=== PATIENT | male | born 1965 | race Caucasian/White ===

== ENCOUNTER 2019-04-02 14:52 | Outpatient (CLI) | payer OTHER, SELFPAY ==
--- NOTE | 2019-04-02 15:00 | USCV_ITS ---
Allen Francois Age: 54 Gender: M : 1965 Exam Date: 04/02/2019 15:02 Ordering Phys: Livia Vergara APRN FIELD APPLICATION ENGINEER Technologist: Natacha Rich Exam Location: [facility] [place] Indication: PRE OP AI BP: / HR: 56 Rhythm: Sinus Technical Quality: Adequate MEASUREMENTS (Male / Female) Normal Values 2D ECHO LV Diastolic Diameter PLAX 4.7 cm 4.2 - 5.9 / 3.9 - 5.3 cm LV Systolic Diameter PLAX 3.0 cm LV Chamber Size 3.0 cm IVS Diastolic Thickness 1.4 cm 0.6 - 1.0 / 0.6 - 0.9 cm IVS Systolic Thickness 1.9 cm LVPW Diastolic Thickness 1.7 cm 0.6 - 1.0 / 0.6 - 0.9 cm LVPW Systolic Thickness 1.8 cm RV Chamber Size 2.8 cm LVOT Diameter 2.1 cm LV Ejection Fraction 2D Teich 63.9 % LV Ejection Fraction MOD 2C 68.4 % LV Ejection Fraction 2C AL 67.1 % LA Diameter 4.4 cm LA Width 2.6 cm LA Height 3.9 cm RA Width 3.2 cm RA Height 5.3 cm M-MODE LV Diastolic Diameter MM 5.6 cm 4.2 - 5.9 / 3.9 - 5.3 cm LV Systolic Diameter MM 3.5 cm LV Ejection Fraction MM Teich 65.9 % IVS Diastolic Thickness MM 0.9 cm 0.6 - 1.0 / 0.6 - 0.9 cm IVS Systolic Thickness MM 1.7 cm LVPW Diastolic Thickness MM 1.4 cm 0.6 - 1.0 / 0.6 - 0.9 cm LVPW Systolic Thickness MM 1.9 cm RV Diastolic Diameter MM 1.5 cm Aortic Annulus Diameter 3.2 cm LA Ao Ratio MM 1.2 MV E Point Septal Separation 0.7 cm DOPPLER AV Peak Velocity 395.0 cm/s LVOT Peak Velocity 94.0 cm/s AV Area Cont Eq vti 0.9 cm squared AV Area Cont Eq pk 0.8 cm squared MV Area PHT 3.7 cm squared Mitral E to A Ratio 1.1 MV E' Velocity 6.0 cm/s Mitral E to MV E' Ratio 12.9 Mitral E to LV E' Lateral Ratio 12.9 Mitral E to LV E' Septal Ratio 12.9 TR Peak Velocity 226.1 cm/s TR Peak Gradient 20.4 mmHg TR Mean Velocity 195.0 cm/s TR Mean Gradient 15.1 mmHg TR Velocity Time Integral 60.1 cm TV Peak E Velocity 67.0 cm/s Right Atrial Pressure 3.0 mmHg Pulmonary Artery Systolic Pressu 23.4 mmHg PV Peak Velocity 97.0 cm/s RV Acceleration Time 0.2 s RV Ejection Time 0.4 s RV AcT/ET 0.5 FINDINGS Left Ventricle Normal left ventricular size and systolic function, EF 69 %. Moderate left ventricular hypertrophy. No regional wall motion abnormalities. Some features of grade 1 left ventricular diastolic dysfunction Right Ventricle The right ventricle is normal in size and function. Right Atrium The right atrium is normal in size. Left Atrium The left atrium is normal in size. Mitral Valve Trace mitral valve regurgitation. Thickened mitral valve. Aortic Valve Thickened and stenotic aortic valve. Mild aortic valve regurgitation. Possibly severe aortic valve stenosis with a valve area of 0.89 cm squared. T and a mean gradient of 30 mmHg he peak velocity of 3.95 m/s with a peak gradient of 63 and a mean gradient of 30 mmHg(low gradient aortic valve stenosis) Tricuspid Valve No gross abnormalities noted Pulmonic Valve Structurally normal pulmonic valve without significant stenosis. There is no pulmonic regurgitation. Pericardium Normal pericardium without effusion. Aorta Dilated ascending aorta measuring 4.3 cm in diameter just above the level of the isthmus. CONCLUSIONS Normal left ventricular size and systolic function, EF 69 %. Moderate left ventricular hypertrophy. No regional wall motion abnormalities. Some features of grade 1 left ventricular diastolic dysfunction. Possibly severe low gradient aortic valve stenosis with a valve area 0.89 cm squared (peak velocity of 3.95 m/s, peak gradient of 63 and a mean gradient of 30 mmHg) Mild aortic valve regurgitation. Dilated ascending aorta measuring 4.3 cm in diameter just above the level of the isthmus. Minimally thickened mitral valve with a trace of mitral regurgitation There is no pericardial effusion. There are no intracardiac masses. No previous study is available for comparison. Dr Amanda Morris MD FAC (Electronically Signed) Final Date: 03 April 2019 16:02 S
== END 2019-04-02 14:53 | disposition home or self-care (01) ==
LOC: RAD 14:55
PROVIDERS: Family Provider Nurse Practitioner Family; PCP Nurse Practitioner Family; Visit Provider Nurse Practitioner Family
DX: I08.0 Rheumatic disorders of both mitral and aortic valves (principal)
CPT/HCPCS: 93306

== ENCOUNTER → 2019-05-05 11:05 | Outpatient (BNVA) | payer OTHER, SELFPAY | PROVIDERS: Family Provider Nurse Practitioner Family; PCP Nurse Practitioner Family; Visit Provider Nurse Practitioner | DX: G89.29 Other chronic pain (principal); M79.604 Pain in right leg; M79.605 Pain in left leg; M54.16 Radiculopathy, lumbar region; R29.898 Other symptoms and signs involving the musculoskeletal system; G25.81 Restless legs syndrome; Z79.891 Long term (current) use of opiate analgesic | CPT/HCPCS: 99213 ==

== ENCOUNTER → 2020-02-25 10:16 | Outpatient (BNVA) | payer OTHER, SELFPAY | PROVIDERS: Family Provider Nurse Practitioner Family; PCP Nurse Practitioner Family; Visit Provider Nurse Practitioner Family | DX: J22 Unspecified acute lower respiratory infection (principal); R06.02 Shortness of breath; I10 Essential (primary) hypertension; Z79.899 Other long term (current) drug therapy; E55.9 Vitamin D deficiency, unspecified; Z20.828 Contact with and (suspected) exposure to other viral communicable diseases; E78.2 Mixed hyperlipidemia; I70.90 Unspecified atherosclerosis | CPT/HCPCS: 36415; 71046; 80053; 80061; 81003; 82306; 83036; 83880; 84443; 85025; 87635 ==

== ENCOUNTER 2020-04-28 19:28 | Emergency (ER) | payer OTHER, SELFPAY ==
[2020-04-28 19:31] VITALS: BP 164/111; PULSE 74; RESP 18; TEMP 36.5; O2SAT 98; BMI 31.8
--- NOTE | 2020-04-28 19:36 | XRR_ITS ---
PROCEDURE INFORMATION: Exam: XR Chest, 2 Views Exam date and time: 04/28/2020 7:51 PM Age: 55 years old Clinical indication: Cough; Additional info: Cough, rib pain TECHNIQUE: Imaging protocol: XR of the chest Views: 2 views. COMPARISON: CR XR chest 2V* [id number] 02/25/2020 10:52 AM FINDINGS: Lungs: Unremarkable. No consolidation. Pleural spaces: Unremarkable. No pleural effusion. No pneumothorax. Heart/Mediastinum: Unremarkable. No cardiomegaly. Bones/joints: Mild levoscoliosis. XR/XR chest 2V* [id number] IMPRESSION: No acute findings.
--- NOTE | 2020-04-28 19:46 | ED_ITS ---
HPI - General Adult General: Chief complaint: General Medical Stated complaint: rib pain, hurts to cough Time Seen by Provider: 04/28/20 19:35 Source: patient Mode of arrival: ambulatory Limitations: no limitations History of Present Illness: HPI narrative: Pleasant 55-year-old male patient with multiple sclerosis presents to the emergency department with 6-week history of cough, nonproductive. Has been to his primary care provider and received antibiotics with steroids approximately 4 weeks ago which was not effective. He has continued with the cough, Covid testing was negative at that time, he reports the cough is worse with exertion or movement. Concern today is development of right lower rib pain after a hard cough. He nearly dropped him to the floor pain was so bad. He denies fever chills, nausea vomiting. He does have history of valve problem, states recent cardiology visit revealed valve problem but not surgically needed in repair at this time. He denies chest pain. States shortness of breath with cough present. Denies edema to the extremities or orthopnea. Onset (ago): week(s) (6) Location: chest Severity: moderate Quality: sharp Pain Consistency: intermittent Relieving factors: rest Exacerbating factors: movement and other (cough) Associated symptoms: Reports cough and dyspnea (with cough); Deny chest pain, confusion, diaphoresis, headache(s), nausea, rash, palpitations or vomiting Review of Systems General: Reports: 10 or more systems reviewed and unremarkable except in HPI and below Const: Denies: fever(s), chills or diaphoresis Eyes: Denies: blurry vision or eye redness ENMT: Denies: throat pain, dental pain or disequilibrium Card: Denies: chest pain, palpitations or irregular heart rhythm Resp: Reports: dyspnea (with cough) and non-productive cough GI: Denies: abdominal pain, nausea, vomiting, dysphagia or GI cramping : Denies: dysuria Musc: Denies: neck pain, back pain, joint pain or joint stiffness Skin/Breast: Denies: rash or pruritus Neuro: Denies: headache(s), numbness in extremities, weakness in extremities, difficulty walking, confusion or behavioral changes Psych: Denies: anxiety, depression, sleeping more, hopelessness, irritability or difficulty concentrating Kody/Lymph: Denies: easy bruising PFS ED PFSH: Medical History Abnormal Q waves on electrocardiogram Aortic root dilation The aortic root was measured to be 4.3 cm in diameter, just above the level of the stenosis. Chest pain Chronic radicular pain of lower back Encounter for long-term opiate analgesic use Hypertension Patient was seen in the [facility] in January 2019 for HTN and given Amlodipine 10mg RX to take daily and to followup at [facility]. Patient did not followup at the clinic and did not continue medications following ER dischar ge. Lower respiratory infection Lower respiratory infection Medication management Mixed hyperlipidemia Multiple sclerosis Opioid contract exists Restless leg syndrome Shortness of breath Trigeminal nerve disease Vitamin D deficiency Surgical History Hx of appendectomy Hx of prior ablation treatment due to trigeminal neuralgia- Severo Carcamo Neurologist Family History Brother Cancer Multiple sclerosis Social History Smoking and tobacco status: never smoked Second hand smoke exposure: No Smoking risk assessment/counseling performed?: No Alcohol intake: never Desire information about alcohol rehabilitation?: No Counseling given: No Desire information about substance/drug rehabilitation?: No Counseling given: No Physical Exam Const: COMMON NORMALS: no acute distress, patient oriented x3, healthy appearing and alert GENERAL APPEARANCE: cooperative, comfortable and well h ydrated HENMT: COMMON NORMALS: normocephalic, Normal external nose present and moist oral mucous membranes HEAD & SCALP: normocephalic NOSE: Normal external nose present Eye: COMMON NORMALS: Equal, round and reactive pupils present and EOMs intact bilaterally GENERAL EYE: appearance normal, both eyes and all related structures PUPIL: Yes Equal, round and reactive pupils present Neck/C-Spine: COMMON NORMALS: full ROM and no lymphadenopathy GENERAL: Yes normal visual inspection and Yes trachea midline CERVICAL SPINE: Yes cervical ROM normal Lymph: LYMPHATIC: no lymphadenopathy noted Chest: COMMONS NORMALS: normal inspection of the chest CHEST: Yes Symmetrical chest wall rise, Yes localized rib tenderness with anteroposterior compression (rt lateral) Location: 9th rib, 10th rib, 11th rib and 12th rib and Yes tenderness rib (rt posterior, lateral lower ribs) Resp: COMMON NORMALS: normal respiratory effort, No use of accessory muscles and clear to auscultation bilaterally EFFORT & INSPECTION: Yes able to speak in complete sentences AUSCULTATION: clear to auscultation bilaterally Cardio: COMMON NORMALS: regular rate, regular rhythm, S1 normal heart sound present, S2 normal heart sound present and Peripheral pulses 2+ throughout RATE: regular rate RHYTHM: regular rhythm HEART SOUNDS: S1 normal heart sound present and S2 normal heart sound present PERIPHERAL PULSES: Peripheral pulses 2+ throughout GI: COMMON NORMALS: Normal to inspection, nondistended, normoactive bowel sounds present, Soft to palpation and non-tender INSPECTION: Yes normal to inspection, No abdominal wall ecchymosis, Yes central obesity, No visible herniation and Yes other (negative Sanz's) PALPATION: Yes Soft to palpation : COMMON NORMALS: Yes no CVA tenderness BLADDER/KIDNEY EXAM: Yes no CVA tenderness Back/Pelvis: COMMON NORMALS: no CVA tenderness and thoracic and lumbar spine normal to inspection Extremity: COMMON NORMALS: normal to inspection and capillary refill normal Neuro: COMMON NORMALS: patient oriented x3 and no focal motor deficits SENSORIUM/ORIENTATION: Yes alert Psych: COMMON NORMALS: mental status grossly normal, Normal thought process present and cooperative ACTIVITY/MOTOR BEHAVIOR: Yes appropriate eye contact THOUGHT PROCESS: Normal thought process present Skin: COMMON NORMALS: no rashes or lesions noted and turgor normal GENERAL SKIN EXAM: no rashes or lesions noted and turgor normal Course Vital Signs: Vital signs: Vital Signs Temperature 97.7 F 04/28/20 19:31 Pulse Rate 71 04/28/20 21:47 Respiratory Rate 17 04/28/20 21:47 Blood Pressure 159/99 04/28/20 21:47 Pulse Oximetry 99 04/28/20 21:47 MDM - General Adult MDM Narrative: Medical decision making narrative: 55-year-old male patient presents to the emergency department with 6-week history of nonproductive cough. Previously prescribed Levaquin with shot of Rocephin approximately 6 weeks ago. Covid testing at that time was negative. Chest x-ray completed today without acute abnormality/rib fracture. I did not appreciate rash such as shingles to the area of pain. He will receive azithromycin as pertussis can cause symptoms patient is exhibiting. He is immunosuppressed secondary to MS. He will also receive Augmentin. He was prescribed Tessalon Perles which states helped in the past. Advised to take ibuprofen or Tylenol as needed for pain, patient reports is satisfied with plan of care and agrees to proceed with antibiotic therapy and Tessalon Perles. Patient denies chest pain or symptoms of heart failure. Lab Data: Labs: Lab Results 04/28/20 04/28/20 Range/Units 19:56 19:56 WBC 10.7 H (4.0-10.0) 10^3/ uL RBC 5.49 H (4.1-5.3) 10^6/u L Hgb 16.6 (11.7-16.6) g/dL Hct 47.6 (42.0-52.0) % MCV 86.7 (80-94) fL MCH 30.2 (28.0-34.0) pg MCHC 34.9 (30.0-36.0) g/dL RDW 12.3 (12.1-15.1) % Plt Count 264 (130-400) 10^3/c mm MPV 9.0 (7.4-10.4) fL Neut % (Auto) 60.0 % Lymph % (Auto) 29.0 % [place] % (Auto) 7.7 % Eos % (Auto) 2.1 % Baso % (Auto) 0.7 % Neut # (Auto) 6.42 (1.8-7.7) 10^3/u L Lymph # (Auto) 3.1 (0.8-4.8) 10^3/u L Estill # (Auto) 0.8 (0.2-0.9) 10^3/u L Eos # (Auto) 0.2 (0.0-0.8) 10^3/u L Baso # (Auto) 0.1 (0.0-0.1) 10^3/u L Nucleated RBC % (a uto) 0 % Nucleated RBCs # 0.0 /100WBC Sodium 137 (136-145) mmol/L Potassium 3.7 (3.5-5.1) mmol/L Chloride 102 (98-107) mmol/L Carbon Dioxide 24 (22-29) mmol/L Anion Gap 14.7 (5-19) BUN 11 (6-20) mg/dL Creatinine 0.8 (0.7-1.2) mg/dL GFR Calculation 99.6 (90-130) mL/min Glucose 123 H (65-115) mg/dL Calculated Osmolal ity 285 (285-295) mOsm/k g Calcium 9.2 (8.5-10.5) mg/dL Total Bilirubin 0.6 (0.15-1.2) mg/dL AST 28 (0-40) U/L ALT 34 (0-41) U/L Alkaline Phosphata se 148 H (40-130) IU/L Total Protein 6.8 (6.6-8.7) g/dL Albumin 4.2 (3.5-5.2) g/dL Globulin 2.6 (1.3-4.6) g/dL Imaging Data^: CXR: Radiologist's impression: [address] [address] XRay Report Signed Patient: Wilder Francois #: [id number] : 1965Acct#:[id number] Age/Sex: 55 / MADM Date: 04/28/20 Loc: ERRoom/Bed: Attending Dr: Ordering Provider/Ordering MD: Nelida Atkins Date of Service: 04/28/20 Procedure(s): XR chest 2V* [id number] Accession Number(s): [id number] Report Number: [id number] PROCEDURE INFORMATION: Exam: XR Chest, 2 Views Exam date and time: 04/28/2020 7:51 PM Age: 55 years old Clinical indication: Cough; Additional info: Cough, rib pain TECHNIQUE: Imaging protocol: XR of the chest Views: 2 views. COMPARISON: CR XR chest 2V* [id number] 02/25/2020 10:52 AM FINDINGS: Lungs: Unremarkable. No consolidation. Pleural spaces: Unremarkable. No pleural effusion. No pneumothorax. Heart/Mediastinum: Unremarkable. No cardiomegaly. Bones/joints: Mild levoscoliosis. XR/XR chest 2V* [id number] IMPRESSION: No acute findings. Dictated By:Sander Laura MD Signed By:Sander Laura MDSigned Date/Time:04/28/202023 DD/ 22 Discharge Plan Discharge Patient Disposition: Home Clinical Impression: Rib pain on right side, Cough, Acute bacterial bronchitis Condition: Stable Prescriptions: New azithromycin 250 mg tablet See Rx Instructions .ROUTE .COMPLEX Qty: 4 RF: 0 benzonatate 200 mg capsule 200 mg PO TID PRN (Reason: cough) Qty: 10 RF: 0 Augmentin 875-125 mg tablet 1 tab PO BID Qty: 14 RF: 0 No Action cholecalciferol (vitamin D3) 5,000 unit tablet,disintegrating PO DAILY RF: 0 ascorbate calcium (vitamin C) 500 mg tablet 500 mg PO DAILY RF: 0 biotin 1 mg tablet 1 mg PO DAILY RF: 0 Advair HFA 230-21 mcg/actuation HFA aerosol inhaler 2 inh inhalation BID 30 Days Qty: 12 RF: 2 lidocaine HCl [Xylocaine] 10 mg/mL (1 %) solution 1 ml IM ONCE Qty: 1 RF: 0 ceftriaxone 1 gram recon soln 1 g IM ONCE Qty: 1 RF: 0 dexamethasone sodium phosphate 10 mg/mL solution 10 mg IM ONCE Qty: 1 RF: 0 levofloxacin 500 mg tablet 500 mg PO DAILY 5 Days Qty: 5 RF: 0 prednisone 20 mg tablet 40 mg PO .Daily in A.M. 5 Days Qty: 10 RF: 0 duloxetine 30 mg capsule,delayed release(DR/EC) 60 mg PO DAILY RF: 0 ropinirole 2 mg tablet 2 mg PO .2 day Qty: 60 RF: 1 oxycodone-acetaminophen [Percocet] 10-325 mg tablet 1 tab PO BID PRN (Reason: pain) 30 Days Qty: 60 RF: 0 oxycodone-acetaminophen 10-325 mg tablet 1 tab PO BID PRN (Reason: pain) 30 Days Qty: 60 RF: 0 losartan 50 mg tablet See Rx Instructions .ROUTE .COMPLEX Qty: 30 RF: 0 amlodipine 10 mg tablet See Rx Instructions .ROUTE .COMPLEX Qty: 30 RF: 5 Discharge Orders: Discharge ED (Routine); Ordered 04/28/20 Ordered By: Nelida Atkins Referrals: NEELAM Vergara, COMMERCIAL PORTFOLIO MANAGER [Primary Care Provider] - Discharge Diet: Usual diet Discharge Activity: Limit activity as instructed Patient Instructions: Bronchitis (Acute) - Adult, Pleurisy (ED), Acute Cough (ED) Activity Restrictions/Additional Instructions: Return to the emergency department if you develop swelling to the lower extremities, inability to lay flat due to shortness of breath or other concerning symptoms Take antibiotics until all gone, take with food Drink plenty of fluids to stay hydrated Covid result testing will be called to you, remain in quarantine until results are known If positive results are resulted, the [facility] will be contacting you with further instruction May take Tylenol/ibuprofen as needed for rib pain Coding Level of Care Code ED [employer] for [facility] Exam Comprehensive
[2020-04-28] MEDS: HYDROcodone-acetaminophen 5-325 mg Tablet 1 TAB PO (19:51)
[2020-04-28 20:13] LABS: Basophils # 0.1 10^3/uL (0.0-0.1); Basophils % 0.7 %; Eosinophils # 0.2 10^3/uL (0.0-0.8); Eosinophils % 2.1 %; Hematocrit 47.6 % (42.0-52.0); Hemoglobin 16.6 g/dL (11.7-16.6); Lymphocytes # 3.1 10^3/uL (0.8-4.8); Mean Corpuscular HGB Conc 34.9 g/dL (30.0-36.0); Mean Corpuscular Hemoglobin 30.2 pg (28.0-34.0); Mean Corpuscular Volume 86.7 fL (80-94); Monocytes # 0.8 10^3/uL (0.2-0.9); Monocytes % 7.7 %; Neutrophils # 6.42 10^3/uL (1.8-7.7); Nucleated Red Blood Cells % 0 %; Platelet Count 264 10^3/cmm (130-400); Red Blood Count 5.49 10^6/uL (4.1-5.3); Red Cell Distribution Width 12.3 % (12.1-15.1); White Blood Count 10.7 10^3/uL (4.0-10.0)
[2020-04-28 20:24] LABS: Alanine Aminotransferase 34 U/L (0-41); Albumin Level 4.2 g/dL (3.5-5.2); Alkaline Phosphatase 148 IU/L (40-130); Anion Gap 14.7 (5-19); Aspartate Amino Transferase 28 U/L (0-40); Blood Urea Nitrogen 11 mg/dL (6-20); Calcium 9.2 mg/dL (8.5-10.5); Carbon Dioxide 24 mmol/L (22-29); Chloride 102 mmol/L (98-107); Globulin 2.6 g/dL (1.3-4.6); Glomerular Filtration Rate 99.6 mL/min (90-130); Glucose 123 mg/dL (65-115); Osmolality Calculated 285 mOsm/kg (285-295); Potassium 3.7 mmol/L (3.5-5.1); Sodium 137 mmol/L (136-145); Total Bilirubin 0.6 mg/dL (0.15-1.2); Total Protein 6.8 g/dL (6.6-8.7)
[2020-04-28] MEDS: amoxicillin-clav 875-125 mg Tablet 1 TAB PO (21:23)
[2020-04-28] MEDS: benzonatate 100 mg Capsule 200 MG PO (21:24)
[2020-04-28] MEDS: azithromycin 250 mg Tablet 500 MG PO (21:25)
[2020-04-28 21:47] VITALS: BP 159/99; PULSE 71; RESP 17; O2SAT 99
[2020-04-29 16:19] LABS: Coronavirus Test Green County Not Detected
== END 2020-04-28 21:47 | disposition home or self-care (01) ==
PROVIDERS: Emergency Provider Nurse Practitioner Family; PCP Nurse Practitioner Family
DX: J20.9 Acute bronchitis, unspecified (principal); R07.81 Pleurodynia; I10 Essential (primary) hypertension; E78.2 Mixed hyperlipidemia; G35 Multiple sclerosis
CPT/HCPCS: 12345; 71046; 80053; 85025; 87635; 99281; 99283; Q0144

== ENCOUNTER 2020-11-03 08:30 | Outpatient (CLI) | payer OTHER, SELFPAY ==
[2020-11-03 09:03] VITALS: BP 108/78; PULSE 91; RESP 16; TEMP 36.9; O2SAT 93
[2020-11-03] MEDS: ondansetron 2 mg/ML SDV 2 mL 4 MG IVP (09:45)
[2020-11-03 10:02] VITALS: BP 108/73; PULSE 74; RESP 16; O2SAT 94
[2020-11-03 10:31] VITALS: BP 106/80; PULSE 85; RESP 18; TEMP 36.9; O2SAT 92
== END 2020-11-03 08:31 | disposition home or self-care (01) ==
LOC: OPS 08:33
PROVIDERS: PCP Nurse Practitioner Family; Visit Provider Nurse Practitioner Family
DX: U07.1 COVID-19 (principal)
CPT/HCPCS: 96365; 96375; J2405

== ENCOUNTER 2021-04-16 19:09 | Emergency (ER) | payer OTHER, SELFPAY ==
[2021-04-16 19:56] VITALS: BP 160/111; PULSE 89; RESP 18; TEMP 36.8; O2SAT 96; BMI 32.5
--- NOTE | 2021-04-16 22:11 | XRR_ITS ---
PROCEDURE INFORMATION: Exam: XR Left Ankle Exam date and time: 04/16/2021 10:11 PM Age: 56 years old Clinical indication: Injury or trauma; Other: Running after calf and heard a pop; Blunt trauma; Ankle; Left TECHNIQUE: Imaging protocol: XR Left ankle. Views: 3 or more views. COMPARISON: No relevant prior studies available. FINDINGS: Bones/joints: There is no evidence for acute fracture or malalignment. Soft tissues: Normal. XR/XR ankle LT min 3V* [id number] IMPRESSION: No acute findings. If there is desire for further evaluation, a MRI could be performed.
--- NOTE | 2021-04-16 22:58 | W.ED.EXTPRO ---
HPI - Extremity Problem General: Chief complaint: Extremity Injury, Lower Stated complaint: Injury Left Leg Time Seen by Provider: 04/16/21 22:31 History of Present Illness: HPI Narrative: Patient is a 56-year-old male comes to the ED with left lower leg injury. Injury occurred couple hours prior to arrival. 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 He rates his pain currently at 9 out of 10. He says his calf immediately looked swollen right after injury. He has loss of range of motion in left ankle. Associated symptoms: Deny chest pain, fever(s) or rash Review of Systems Const: Denies: fever(s), chills or fatigue Eyes: Denies: change in vision or eye discomfort ENMT: Denies: throat pain, odynophagia, nasal discharge or nasal congestion Card: Denies: chest pain, palpitations, edema, swelling of feet/ankles, dyspnea on exertion or orthopnea Resp: Denies: dyspnea, productive cough or non-productive cough GI: Denies: abdominal pain, nausea, vomiting, diarrhea, constipation or hematochezia : Denies: flank pain, difficulty urinating, dysuria or hematuria Musc: Reports: extremity pain (left calf), extremity swelling (left calf) and limited range of motion (left ankle); Denies: neck pain or back pain Skin/Breast: Denies: rash or new lesions Neuro: Denies: headache(s), numbness in extremities or weakness in extremities PFS ED PFSH: Medical History Abnormal Q waves on electrocardiogram Acute bacterial sinusitis Aortic root dilation The aortic root was measured to be 4.3 cm in diameter, just above the level of the stenosis. Chest pain Chronic radicular pain of lower back Cough Encounter for long-term opiate analgesic use Hypertension Patient was seen in the [facility] in January 2019 for HTN and given Amlodipine 10mg RX to take daily and to followup at [facility]. Patient did not followup at the clinic and did not continue medications following ER discharge. Lower respiratory infection Lower respiratory infection Medication management Mild acid reflux Mixed hyperlipidemia Multiple sclerosis Opioid contract exists Restless leg syndrome Shortness of breath Trigeminal nerve disease Vitamin D deficiency Surgical History Hx of appendectomy Hx of prior ablation treatment due to trigeminal neuralgia- Severo Carcamo Neurologist Family History Brother Cancer Multiple sclerosis Social History Smoking and tobacco status: never smoked Second hand smoke exposure: No Smoking risk assessment/counseling performed?: No Alcohol intake: never Desire information about alcohol rehabilitation?: No Counseling given: No Desire information about substance/drug rehabilitation?: No Counseling given: No Physical Exam Const: COMMON NORMALS: patient oriented x3 and alert GENERAL APPEARANCE: cooperative HENMT: COMMON NORMALS: normocephalic HEAD & SCALP: normocephalic MOUTH: Normal oral and palatal mucosa present THROAT: posterior oropharynx normal and uvula midline Neck/C-Spine: COMMON NORMALS: supple GENERAL: Yes normal visual inspection Resp: COMMON NORMALS: normal respiratory effort, No retractions, No use of accessory muscles and clear to auscultation bilaterally AUSCULTATION: clear to auscultation bilaterally Cardio: COMMON NORMALS: regular rate, regular rhythm, S1 normal heart sound present, S2 normal heart sound present, No gallops present (Cardio), No clicks present (Cardio), No murmurs present (Cardio) and Peripheral pulses 2+ throughout RATE: regular rate RHYTHM: regular rhythm HEART SOUNDS: S1 normal heart sound present and S2 normal heart sound present PERIPHERAL PULSES: Peripheral pulses 2+ throughout GI: COMMON NORMALS: Normal to inspection, nondistended, normoactive bowel sounds present, Soft to palpation, non-tender and no masses PALPATION: Yes Soft to palpation : COMMON NORMALS: Yes no CVA tenderness BLADDER/KIDNEY EXAM: Yes no CVA tenderness Back/Pelvis: COMMON NORMALS: no CVA tenderness Extremity: LEFT LOWER EXTREMITY: Yes lower leg Left lower leg: Yes inspection (Swelling and enlarged calf. No erythema or warmth), Yes palpation (Tenderness to palpation of calf muscle), Yes neurovascular exam (Intact) and Yes other OTHER: Due to room positioning I was unable to perform the appropriate Juarez's test since exam room did not have a bed and only had chairs for patients. Patient did have intense pain with palpation of left calf. limited range of motion in ankle Neuro: COMMON NORMALS: patient oriented x3 and moves all extremities SENSORIUM/ORIENTATION: Yes alert Skin: GENERAL SKIN EXAM: dry skin Course Vital Signs: Vital signs: Vital Signs Temperature 98.2 F 04/16/21 19:56 Pulse Rate 89 04/16/21 19:56 Respiratory Rate 18 04/16/21 19:56 Blood Pressure 160/111 04/16/21 19:56 Pulse Oximetry 96 04/16/21 19:56 MDM - Extremity (Nontraumatic) MDM Narrative: Medical decision making narrative: Patient is a 56-year-old male comes to the ED with left calf pain. Patient says he injured it a couple hours prior to arrival. 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 Says pain was severe and sudden and his calf muscle was swollen immediately after injury. Vital stable. Exam of patient shows an enlarged swollen left calf that is tender to palpation. He has limited range of motion of the left ankle. Neurovascular tact distally. X-ray of left ankle shows no acute fractures or findings. Due to patient's history and exam findings he is diagnosed with a Left achilles tendon rupture. I placed order with case management for patient be referred to Ortho for further evaluation. He was put in a short leg posterior splint with his foot and plantar flexion. He was discharged with crutches and told no weightbearing. He was sent home with a prescription for hydrocodone for pain. Return to ED precautions given. Imaging Data^: Xray Ortho: Attestation: I personally reviewed and interpreted this imaging study as follows: Radiologist's impression: [address] [address] XRay Report Signed Patient: Allen Francois Unit #: [id number] : 1965 Age/Sex: 56 / M ADM Date: 04/16/21 Loc: ER Room/Bed: Attending Dr: Ordering Provider/Ordering MD: Rishi Teresa MD Date of Service: 04/16/21 Procedure(s): XR ankle LT min 3V* [id number] Accession Number(s): [id number] Report Number: [id number] PROCEDURE INFORMATION: Exam: XR Left Ankle Exam date and time: 04/16/2021 10:11 PM Age: 56 years old Clinical indication: Injury or trauma; Other: Running after calf and heard a pop; Blunt trauma; Ankle; Left TECHNIQUE: Imaging protocol: XR Left ankle. Views: 3 or more views. COMPARISON: No relevant prior studies available. FINDINGS: Bones/joints: There is no evidence for acute fracture or malalignment. Soft tissues: Normal. XR/XR ankle LT min 3V* [id number] IMPRESSION: No acute findings. If there is desire for further evaluation, a MRI could be performed. Dictated By: Jordan Moreno MD Signed By: Jordan Moreno MD Signed Date/Time: 04/16/212323 DD/ 10 Discharge Plan Discharge Patient Disposition: Home Clinical Impression: Achilles rupture, left Qualifiers: Encounter type: initial encounter Qualified Code(s): S86.012A - Strain of left Achilles tendon, initial encounter Condition: Stable Prescriptions: No Action cholecalciferol (vitamin D3) 5,000 unit tablet,disintegrating PO DAILY RF: 0 ascorbate calcium (vitamin C) 500 mg tablet 500 mg PO DAILY RF: 0 biotin 1 mg tablet 1 mg PO DAILY RF: 0 lidocaine HCl [Xylocaine] 10 mg/mL (1 %) solution 1 ml IM ONCE Qty: 1 RF: 0 ceftriaxone 1 gram recon soln 1 g IM ONCE Qty: 1 RF: 0 dexamethasone sodium phosphate 10 mg/mL solution 10 mg IM ONCE Qty: 1 RF: 0 duloxetine 30 mg capsule,delayed release(DR/EC) 60 mg PO DAILY RF: 0 ropinirole 2 mg tablet 2 mg PO .2 day Qty: 60 RF: 1 oxycodone-acetaminophen [Percocet] 10-325 mg tablet 1 tab PO BID PRN (Reason: pain) 30 Days Qty: 60 RF: 0 oxycodone-acetaminophen 10-325 mg tablet 1 tab PO BID PRN (Reason: pain) 30 Days Qty: 60 RF: 0 losartan 100 mg tablet 100 mg PO DAILY RF: 0 furosemide 20 mg tablet 20 mg PO DAILY PRN (Reason: edema) RF: 0 famotidine [Pepcid] 40 mg tablet 40 mg PO DAILY 30 Days Qty: 30 RF: 1 Augmentin 875-125 mg tablet 1 tab PO BID 10 Days Qty: 20 RF: 0 promethazine-DM 6.25-15 mg/5 mL syrup 5 ml PO Q6H Qty: 220 RF: 0 azithromycin 250 mg tablet See Rx Instructions PO .COMPLEX Qty: 6 RF: 0 amlodipine 10 mg tablet See Rx Instructions .ROUTE .COMPLEX Qty: 30 RF: 5 Discharge Orders: Discharge ED (Routine); Ordered 04/16/21 Ordered By: Juan Gerber Referrals: NEELAM Vergara, [employer] [Primary Care Provider] - Discharge Diet: Regular Discharge Activity: Limit activity as instructed and Use walker/crutches as instructed Patient Instructions: Achilles Tendon Rupture (ED), Opioid Safety Activity Restrictions/Additional Instructions: Follow-up with medical provider as directed. Case management should be contacting you in the next several days to set up an appoint with orthopedic for further management of Achilles rupture. Keep splint on and dry and no weightbearing on left foot. Use crutches for ambulation. Take medications as prescribed. Return to the ER or your medical provider if condition worsens. Please read and understand discharge instructions. Thank you for choosing [facility] for your healthcare needs today. Please realize this is an emergency room and that we are providing you with a medical screening exam and this may not be complete and all inclusive of all the testing and or work up that you may need to determine your ailment or severity of your illness. It is very important that you follow up as instructed or that you return to the Emergency Department should you have concerns or if your condition changes or worsens in any way. Coding Level of Care Code ED [employer] for [facility] Exam Comprehensive
[2021-04-16] MEDS: HYDROcodone-acetaminophen 7.5-325 mg Tablet 1 TAB PO ×2 (23:08→23:44)
[2021-04-17 00:08] VITALS: BP 157/98; PULSE 87; RESP 18; TEMP 36.7; O2SAT 97
--- NOTE | 2021-04-17 13:48 | DCPLANNER ---
Addendum entered by Fatou Hassan 04/20/21 13:57: Patient had a follow up appointment scheduled for 04.20.21 with ortho - patient did attend appointment. Original Note: social media community manager had message to schedule a follow up appointment for patient with ortho. social media community manager called the ortho clinic, spoke with Joann, gave clinic patients information. social media community manager was told that patients information will be printed and reviewed. Clinic will call patient with appointment information.
== END 2021-04-17 00:10 | disposition home or self-care (01) ==
PROVIDERS: Emergency Provider Physician Assistant; PCP Nurse Practitioner Family
DX: S86.012A Strain of left Achilles tendon, initial encounter (principal); I10 Essential (primary) hypertension; E78.2 Mixed hyperlipidemia; G35 Multiple sclerosis; X50.9XXA Other and unspecified overexertion or strenuous movements or postures, initial encounter
CPT/HCPCS: 29515; 73610; 99283; E0114

== ENCOUNTER 2021-04-20 14:48 | Outpatient (CLI) | payer OTHER, SELFPAY | END 2021-04-20 14:49 | disposition home or self-care (01) | LOC: SPT 14:49 | PROVIDERS: PCP Nurse Practitioner Family; Visit Provider Podiatrist Foot & Ankle Surgery | DX: Z46.89 Encounter for fitting and adjustment of other specified devices (principal); S86.012S Strain of left Achilles tendon, sequela; X58.XXXS Exposure to other specified factors, sequela | CPT/HCPCS: 97760; L3170; L4361 ==

== ENCOUNTER → 2022-03-06 09:06 | Outpatient (BNVA) | payer OTHER, SELFPAY | PROVIDERS: Visit Provider Nurse Practitioner | DX: Z79.01 Long term (current) use of anticoagulants (principal); Z09 Encounter for follow-up examination after completed treatment for conditions other than malignant neoplasm | CPT/HCPCS: 85610 ==

== ENCOUNTER → 2022-03-08 11:49 | Outpatient (BNVA) | payer OTHER, SELFPAY | PROVIDERS: Visit Provider Nurse Practitioner | DX: Z79.01 Long term (current) use of anticoagulants (principal) | CPT/HCPCS: 85610 ==

== ENCOUNTER → 2022-03-12 08:48 | Outpatient (BNVA) | payer OTHER, SELFPAY | PROVIDERS: PCP Nurse Practitioner; Visit Provider Nurse Practitioner | DX: Z79.01 Long term (current) use of anticoagulants (principal) | CPT/HCPCS: 85610 ==

== ENCOUNTER → 2022-03-14 10:06 | Outpatient (BNVA) | payer OTHER, SELFPAY | PROVIDERS: PCP Nurse Practitioner; Visit Provider Nurse Practitioner Family | DX: Z79.01 Long term (current) use of anticoagulants (principal); R82.90 Unspecified abnormal findings in urine | CPT/HCPCS: 81000; 85610 ==

== ENCOUNTER → 2022-03-26 08:54 | Outpatient (BNVA) | payer OTHER, SELFPAY | PROVIDERS: PCP Nurse Practitioner; Visit Provider Nurse Practitioner | DX: Z79.01 Long term (current) use of anticoagulants (principal) | CPT/HCPCS: 85610 ==

== ENCOUNTER → 2022-04-01 09:47 | Outpatient (BNVA) | payer OTHER, SELFPAY | PROVIDERS: PCP Nurse Practitioner; Visit Provider Nurse Practitioner | DX: N39.0 Urinary tract infection, site not specified (principal) | CPT/HCPCS: 81000; 87077; 87086; 87184 ==

== ENCOUNTER 2022-04-02 11:00 | Emergency (ER) | payer OTHER, SELFPAY ==
[2022-04-02] VITALS (11 sets, daily range): BP systolic 91–126; BP diastolic 64–95; PULSE 114–131; RESP 16–35; TEMP 37.3; O2SAT 94–96; BMI 4198.5
--- NOTE | 2022-04-02 11:13 | ECG_ITS ---
[facility] Test Date: 2022-04-02 Pat Name: Allen Francois Department: Room: Gender: Male Provider Scribe: : 1965 Requested By: Aakash Cordon Order Number: [id number] Liseth MD: Kelvin Johnson M.D. Measurements Intervals [place] Rate: 118 P: 44 WV: 146 QRS: 66 QRSD: 85 T: -25 QT: 340 QTc: 478 Interpretive Statements SINUS TACHYCARDIA POSSIBLE LEFT ATRIAL ENLARGEMENT [-0.1mV P-WAVE IN V1/V2] ANTEROSEPTAL MYOCARDIAL INFARCTION , OF INDETERMINATE AGE [40+ ms Q WAVE IN V1-V4] MODERATE T-WAVE ABNORMALITY, CONSIDER INFERIOR ISCHEMIA [-0.1+ mV T-WAVE IN II/aVF] Compared to ECG 02/12/2019 16:40:41 Myocardial infarct finding now present Possible ischemia now present Sinus rhythm no longer present T-wave abnormality still present Electronically Signed On 04-02-2022 11:53:27 [employer] by Kelvin Johnson M.D. [email or web address]
--- NOTE | 2022-04-02 11:56 | XRR_ITS ---
PROCEDURE INFORMATION: Exam: XR Chest Exam date and time: 04/02/2022 12:24 PM Age: 57 years old Clinical indication: Other: Fatigue; Prior surgery; Surgery date: 1-6 months; Patient HX: Yoko, open heart surgery in February, recently had flu and a UTI, no apatite, unintentionally lost 40 pounds in the last month TECHNIQUE: Imaging protocol: Radiologic exam of the chest. Views: 1 view. COMPARISON: CR XR chest 2V* [id number] 04/28/2020 8:08 PM FINDINGS: Lungs: There is an ill-defined somewhat masslike area of consolidation left mid lung zone that has developed partially obscured by cardiac silhouette that should be further evaluated on CT exam. Right lung field is aerated and clear. Pleural spaces: Unremarkable. No pleural effusion. No pneumothorax. Heart/Mediastinum: Cardiac silhouette is enlarged and increased in size with prominence of the right heart border. There is tortuosity and ectasia of the thoracic aorta unchanged. Bones/joints: Patient has undergone prior median sternotomy. XR/XR chest 1V portable [id number] IMPRESSION: Ill-defined irregular shaped density left mid lung zone for which follow-up CT chest preferably with IV contrast recommended for further assessment.
--- NOTE | 2022-04-02 12:00 | ED_ITS ---
HPI - Weakness General: Chief complaint: Weakness Stated complaint: [facility] sent, dehydrated Time Seen by Provider: 04/02/22 11:18 Source: patient and family Limitations: no limitations History of Present Illness: This patient presents to our emergency department directed by his primary care clinic. He has felt increasingly fatigued and weak over the last number of days. There is a question whether he has a possible uri nary tract infection. He has been anorexic with lightheadedness with standing. [place] any chest pain. He denies any shortness of breath. He has had some vomiting but no diarrhea. Subjective fevers but no documented elevation of his temperature. No known exposure to infectious disease recently. His most recent medical history remarkable for having a aortic valve replacement as well as a double bypass performed at [facility] approximately 30 days ago. He has postoperative course was remarkable in that he had apparent postoperative hemorrhage requiring a revisit to the operating room. He also apparently had a post operative urinary tract infection as well as influenza. He has no known history of having DE, heart failure etc. other than when he became critical with his aortic stenosis. MD Complaint: generalized weakness Context: recent surgery Associated symptoms: Reports easy bruising, nausea and vomiting; Denies chest pain, dysuria or headache(s) Review of Systems Const: Reports: change in appetite, change in weight and fatigue Eyes: Denies: change in vision ENMT: Denies: throat pain, odynophagia, nasal discharge or nasal congestion Card: Reports: pre-syncope; Denies: chest pain, palpitations, irregular heart rhythm, dyspnea on exertion or orthopnea Resp: Reports: non-productive cough; Denies: dyspnea, productive cough, wheezing or stridor GI: Reports: nausea and vomiting; Denies: abdominal pain, diarrhea or constipation : Denies: flank pain, difficulty urinating, dysuria or urinary frequency Musc: Denies: neck pain, back pain, extremity pain or extremity swelling Skin/Breast: Denies: rash Neuro: Denies: headache(s), numbness in extremities or weakness in extremities Kody/Lymph: Reports: easy bruising PFS ED PFSH: Medical History Abnormal Q waves on electrocardiogram Acute bacterial sinusitis Aortic root dilation The aortic root was measured to be 4.3 cm in diameter, just above the level of the stenosis. Chest pain Chronic radicular pain of lower back Cough Encounter for long-term opiate analgesic use Hypertension Patient was seen in the [facility] in January 2019 for HTN and given Amlodipine 10mg RX to take daily and to followup at [facility]. Patient did not followup at the clinic and did not continue medications following ER discharge. Lower respiratory infection Lower respiratory infection Medication management Mild acid reflux Mixed hyperlipidemia Multiple sclerosis Opioid contract exists Restless leg syndrome Shortness of breath Trigeminal nerve disease Vitamin D deficiency Surgical History Hx of appendectomy Hx of prior ablation treatment due to trigeminal neuralgia- Severo Carcamo Neurologist Family History Brother Cancer Multiple sclerosis Social History Smoking and tobacco status: never smoked Second hand smoke exposure: No Smoking risk assessment/counseling performed?: No Alcohol intake: never Desire information about alcohol rehabilitation?: No Counseling given: No Desire information about substance/drug rehabilitation?: No Counseling given: No Physical Exam Narrative: EXAM NARRATIVE: Appears ill. He makes good eye contact and answers questions in a goal-directed fashion. Const: COMMON NORMALS: average body habitus, patient oriented x3 and alert GENERAL APPEARANCE: comfortable HENMT: COMMON NORMALS: normocephalic, atraumatic and oropharynx normal HEAD & SCALP: normocephalic and atraumatic OTHER: Dry mucous membranes. No erythema. Eye: COMMON NORMALS: Equal, round and reactive pupils present, EOMs intact bilaterally and no scleral icterus PUPIL: Yes Equal, round and reactive pupils present Neck/C-Spine: COMMON NORMALS: full ROM, no lymphadenopathy and supple Chest: CHEST: Yes Surgical scars present (Chest) (Sternotomy as well as chest tube scars noted. No erythema or drainage.) Resp: COMMON NORMALS: normal respiratory effort, No retractions, No use of accessory muscles and clear to auscultation bilaterally AUSCULTATION: clear to auscultation bilaterally Cardio: COMMON NORMALS: regular rate, regular rhythm, No murmurs present (Cardio) and Peripheral pulses 2+ throughout RATE: regular rate RHYTHM: regular rhythm PERIPHERAL PULSES: Peripheral pulses 2+ throughout GI: COMMON NORMALS: Normal to inspection, nondistended, normoactive bowel sounds present, Soft to palpation, non-tender and no masses PALPATION: Yes Soft to palpation : COMMON NORMALS: Yes no CVA tenderness BLADDER/KIDNEY EXAM: Yes no CVA tenderness Back/Pelvis: COMMON NORMALS: no CVA tenderness, thoracic and lumbar spine normal to inspection and no thoracic nor lumbar tenderness Extremity: COMMON NORMALS: normal to inspection, full ROM, capillary refill normal, no calf tenderness and no pedal edema Neuro: COMMON NORMALS: patient oriented x3, moves all extremities, no focal motor deficits and no sensory deficits noted SENSORIUM/ORIENTATION: Yes alert Psych: COMMON NORMALS: mental status grossly normal Skin: COMMON NORMALS: no rashes or lesions noted, no wounds and turgor normal GENERAL SKIN EXAM: no rashes or lesions noted and turgor normal Course Reevaluation(s): Reevaluation #1: Initial studies noted. Chest x-ray shows a large ill-defined density in the left chest. Per radiology recommendations we will proceed with a CT scan for further delineation. Time: 13:17 Reevaluation #2: LimitedLimited bedside echocardiogram was performed using portable bedside ultrasound. Windows using parasternal long axis and parasternal short axis as well as subxiphoid reveals a apparent large pericardial effusion. He does not appear to significant restriction of RV filling at the time of this limited study. Time: 15:05 Consultations: Consultation #1: Discussed with our cardiothoracic surgeon regarding the current patient's findings and status. He did recommend that we contact cardiothoracic surgery at [facility] who did the original procedure. His concern is that it is a recent operation and he has no brass bobbin winder available at this facility and and would prefer us to discuss with them prior to us engaging in any activity to correct this effusion at this time. Time: 14:49 Consultation #2: Discussed with Dr. Sergio Cardenas on-call cardiothoracic surgeon at [facility]. He will determine if they have bed availability. Time: 15:04 Vital Signs: Vital signs: Vital Signs Temperature 99.2 F 04/02/22 11:09 Pulse Rate 131 H 04/02/22 11:09 Respiratory Rate 16 04/02/22 11:09 Blood Pressure 91/64 04/02/22 11:09 Pulse Oximetry 96 04/02/22 11:09 Oxygen Delivery Me thod 04/02/22 11:09 MDM - Weakness Medical Decision Making Patient status post aortic valve replacement and two-vessel coronary artery bypass performed at [facility] approximately 30 days prior to arrival to our facility. He has had a waxing waning postoperative course and most recently has not felt well with decreased energy, elevated heart rate, subjective fevers. He was referred here from his outpatient clinic. Evaluation in the emergency department to establish the etiology of his current clinical picture included laboratories, imaging etc. [place]orton diagnosis included possible infection, volume depletion, myocardial dysfunction and other potential postoperative complications. His imaging here today revealed a circumferential with left- sided predominant pericardial effusion. Local cardiothoracic surgeon was consulted who recommended transfer to a facility that has perfusion the capability of and that this was a postoperative effusion and potentially might require an open procedure. [facility] was consulted who agreed to accept the patient in transfer. The patient is currently stable to be transferred by ground to [facility] for additional care and treatment. Medical Records I reviewed the patient's medical records. Lab Data I reviewed the patient's lab results. 04/02/22 12:00 04/02/22 12:00 Radiology Impressions Chest X-Ray 04/02/22 11:56 IMPRESSION: Ill-defined irregular shaped density left mid lung zone for which follow-up CT chest preferably with IV contrast recommended for further assessment. Chest CT 04/02/22 13:16 IMPRESSION: 1. Large pericardial effusion with features of cardiac tamponade. Peripheral enhancing effusion with slight increased attenuation may represent subacute blood products. Infection not entirely excluded. 2. Partial effacement of the RIGHT and LEFT atria with mass effect on the ventricles described above. 3. Small LEFT pleural effusion. Subsegmental atelectasis in the LEFT upper lobe with air bronchograms. 4. Volume loss LEFT lower lobe. 5. Wedge-shaped area of decreased attenuation in the spleen suspicious for small small infarct. This measures approximately 2.5 x 1.0 cm. Notified James Camejo DO at 04/02/2022 2:12 PM. Laboratory Results WBC 17.4 10^3/uL (4.0-10.0) H 04/02/22 12:00 RBC 4.47 10^6/uL (4.1-5.3) 04/02/22 12:00 Hgb 12.4 g/dL (11.7-16.6) 04/02/22 12:00 Hct 39.5 % (42.0-52.0) L 04/02/22 12:00 MCV 88.4 fl (80-94) 04/02/22 12:00 MCH 27.7 pg (28.0-34.0) L 04/02/22 12:00 MCHC 31.4 g/dL (30.0-36.0) 04/02/22 12:00 RDW 13.9 % (12.1-15.1) 04/02/22 12:00 Plt Count 384 10^3/cmm (130-400) 04/02/22 12:00 MPV 9.5 fL (7.4-10.4) 04/02/22 12:00 Neut % (Auto) 79.2 % 04/02/22 12:00 Lymph % (Auto) 7.7 % 04/02/22 12:00 [place] % (Auto) 12.1 % 04/02/22 12:00 Eos % (Auto) 0.2 % 04/02/22 12:00 Baso % (Auto) 0.2 % 04/02/22 12:00 Neut # (Auto) 13.74 10^3/uL (1.8-7.7) H 04/02/22 12:00 Lymph # (Auto) 1.3 10^3/uL (0.8-4.8) 04/02/22 12:00 [place] # (Auto) 2.1 10^3/uL (0.2-0.9) H 04/02/22 12:00 Eos # (Auto) 0.0 10^3/uL (0.0-0.8) 04/02/22 12:00 Baso # (Auto) 0.0 10^3/uL (0.0-0.1) 04/02/22 12:00 Nucleated RBC % (auto) 0 % 04/02/22 12:00 Nucleated RBCs # 0.0 /100WBC 04/02/22 12:00 PT 25.80 SECONDS (12.1-14.9) H 04/02/22 12:00 INR 2.32 (0.8-1.2) H 04/02/22 12:00 Sodium 136 mmol/L (136-145) 04/02/22 12:00 Potassium 4.9 mmol/L (3.5-5.1) 04/02/22 12:00 Chloride 99 mmol/L (98-107) 04/02/22 12:00 Carbon Dioxide 23 mmol/L (22-29) 04/02/22 12:00 Anion Gap 18.9 (5-19) 04/02/22 12:00 BUN 13 mg/dL (6-20) 04/02/22 12:00 Creatinine 1.0 mg/dL (0.7-1.2) 04/02/22 12:00 GFR Calculation 76.5 mL/min (90-130) L 04/02/22 12:00 Glucose 132 mg/dL (65-115) H 04/02/22 12:00 Calculated Osmolality 284 mOsm/kg (285-295) L 04/02/22 12:00 Lactate 2.4 mmol/L (0.5-2.2) H 04/02/22 12:00 Calcium 8.5 mg/dL (8.5-10.5) 04/02/22 12:00 Magnesium 2.2 mg/dL (1.7-2.3) 04/02/22 12:00 Total Bilirubin 1.3 mg/dL (0.15-1.2) H 04/02/22 12:00 AST 19 U/L (0-40) 04/02/22 12:00 ALT 15 U/L (0-41) 04/02/22 12:00 Alkaline Phosphatase 151 U/L (40-130) H 04/02/22 12:00 Troponin T Baseline 11 ng/L (0-15) 04/02/22 12:00 Troponin T 120 Minute 11.36 ng/L (0-15) 04/02/22 14:00 Delta Troponin T 0.36 ABS# (0-10) 04/02/22 14:00 NT-Pro-B Natriuret Pep 1043 pg/mL (0-125) H 04/02/22 12:00 Total Protein 6.7 g/dL (6.6-8.7) 04/02/22 12:00 Albumin 3.2 g/dL (3.5-5.2) L 04/02/22 12:00 Globulin 3.5 g/dL (1.3-4.6) 04/02/22 12:00 EKG Data EKG 1: I personally reviewed and interpreted this EKG as follows: Interpretation: Contemporaneous review of EKG reveals sinus tachycardia 118 bpm. Normal KS and QRS and QTc interval duration. Has a normal axis. Review of tracing also reveals a loss of anterior forces V2 V3 V4 suggestive of possible prior anterior septal DE.No prior tracings available within the system. Discharge Plan Discharge Patient Disposition: Xfer Short-Term Hosp Clinical Impression: Effusion, pericardium, Status post aortic valve replacement Condition: Stable Prescriptions: No Action metoprolol tartrate 25 mg tablet 12.5 mg PO BID aspirin 325 mg Tablet 325 mg PO DAILY warfarin 5 mg Tablet 5 mg PO DAILY ropinirole 2 mg tablet 2 mg PO BID Referrals: Fartun Rockwell FNP [Primary Care Provider] - Coding Level of Care Code ED Solar Installation Supervisor for Chg Fwd Exam Comprehensive
[2022-04-02] MEDS: sodium chloride 0.9% 500 ML IV (12:05)
[2022-04-02 12:28] LABS: Basophils % 0.2 %; Eosinophils % 0.2 %; Hematocrit 39.5 % (42.0-52.0); Hemoglobin 12.4 g/dL (11.7-16.6); Lymphocytes # 1.3 10^3/uL (0.8-4.8); Lymphocytes % 7.7 %; Mean Corpuscular HGB Conc 31.4 g/dL (30.0-36.0); Mean Corpuscular Hemoglobin 27.7 pg (28.0-34.0); Mean Corpuscular Volume 88.4 fl (80-94); Mean Platelet Volume 9.5 fL (7.4-10.4); Monocytes # 2.1 10^3/uL (0.2-0.9); Monocytes % 12.1 %; Neutrophils # 13.74 10^3/uL (1.8-7.7); Neutrophils % 79.2 %; Nucleated Red Blood Cells % 0 %; Platelet Count 384 10^3/cmm (130-400); Red Blood Count 4.47 10^6/uL (4.1-5.3); Red Cell Distribution Width 13.9 % (12.1-15.1); White Blood Count 17.4 10^3/uL (4.0-10.0)
[2022-04-02 12:46] LABS: INR 2.32 (0.8-1.2)
[2022-04-02 12:57] LABS: Lactate (Lactic Acid level) 2.4 mmol/L (0.5-2.2)
[2022-04-02 12:59] LABS: Troponin(5th) Baseline 11 ng/L (0-15)
[2022-04-02 13:06] LABS: Alanine Aminotransferase 15 U/L (0-41); Albumin Level 3.2 g/dL (3.5-5.2); Alkaline Phosphatase 151 U/L (40-130); Blood Urea Nitrogen 13 mg/dL (6-20); Calcium 8.5 mg/dL (8.5-10.5); Carbon Dioxide 23 mmol/L (22-29); Chloride 99 mmol/L (98-107); Globulin 3.5 g/dL (1.3-4.6); Glomerular Filtration Rate 76.5 mL/min (90-130); Glucose 132 mg/dL (65-115); Magnesium 2.2 mg/dL (1.7-2.3); NT Pro B Type Natriuretic Pept 1043 pg/mL (0-125); Osmolality Calculated 284 mOsm/kg (285-295); Sodium 136 mmol/L (136-145); Total Bilirubin 1.3 mg/dL (0.15-1.2); Total Protein 6.7 g/dL (6.6-8.7)
[2022-04-02 13:08] LABS: Anion Gap 18.9 (5-19); Aspartate Amino Transferase 19 U/L (0-40); Potassium 4.9 mmol/L (3.5-5.1)
--- NOTE | 2022-04-02 13:16 | CT_ITS ---
WS: [id number] CT CHEST TECHNIQUE: Contrast enhanced CT of the chest with coronal and sagittal reformatted images. CLINICAL INFORMATION: left chest mass COMPARISON: None. DLP: 716.[address] scans at [facility] use at least one of these dose optimization techniques: automated e xposure control; mA and/or kV adjustment per patient size (includes targeted exams where dose is matc hed to clinical indication); or iterative reconstruction. FINDINGS: Sternotomy with CABG and aVR. Large pericardial fluid collection with features of cardiac tamponade. Mass effect on the LEFT and RIGHT atria with partial effacement. Distention of the superior inferior vena cava. Mass effect on the RIGHT greater than LEFT ventricles. Normal caliber thoracic aorta. Prox imal main pulmonary arteries are patent. Peripheral enhancing pericardial fluid collection with sligh t increased attenuation. This may represent postoperative hematoma/blood products. Infection not enti rely excluded Associated peripheral enhancement. Small LEFT pleural effusion. Subsegmental atelectasis in the LEFT upper lobe with air bronchograms. Mild volume loss LEFT lower lobe. Tiny RIGHT pleural effusion. Adrenal glands are normal. Splenic artery calcification. Upper abdominal aorta is normal in caliber. Normal GE junction. Small wedge-shaped area of decreased attenuation in the spleen suspicious for sma ll splenic infarct. CT/CT chest w con* [id number] IMPRESSION: 1. Large pericardial effusion with features of cardiac tamponade. Peripheral e nhancing effusion with slight increased attenuation may represent subacute bloo d products. Infection not entirely excluded. 2. Partial effacement of the RIGHT and LEFT atria with mass effect on the vent ricles described above. 3. Small LEFT pleural effusion. Subsegmental atelectasis in the LEFT upper lob e with air bronchograms. 4. Volume loss LEFT lower lobe. 5. Wedge-shaped area of decreased attenuation in the spleen suspicious for sma ll small infarct. This measures approximately 2.5 x 1.0 cm. Notified James Camejo DO at 04/02/2022 2:12 PM.
[2022-04-02] MEDS: iohexol 350 mg/mL 500 mL Btl (per mL) IV (13:30)
--- NOTE | 2022-04-02 13:59 | ECG_ITS ---
[facility] Test Date: 2022-04-02 Pat Name: Allen Francois Department: Room: Gender: Male Mastic Man: : 1965 Requested By: James Camejo Order Number: [id number] Liseth MD: Kelvin Johnson M.D. Measurements Intervals [place] Rate: 112 P: 33 TX: 158 QRS: 63 QRSD: 83 T: -38 QT: 305 QTc: 417 Interpretive Statements SINUS TACHYCARDIA POSSIBLE LEFT ATRIAL ENLARGEMENT [-0.1mV P-WAVE IN V1/V2] ANTEROSEPTAL MYOCARDIAL INFARCTION , OF INDETERMINATE AGE [40+ ms Q WAVE IN V1-V4] Compared to ECG 04/02/2022 11:21:59 T-wave abnormality no longer present Possible ischemia no longer present Myocardial infarct finding still present Electronically Signed On 04-02-2022 17:27:58 INVESTIGATION DIVISION LIEUTENANT by Kelvin Johnson M.D. [id number]
[2022-04-02 14:41] LABS: Troponin 5 2HR 11.36 ng/L (0-15)
[2022-04-02 14:44] LABS: Troponin 5 2HR Delta 0.36 ABS# (0-10)
[2022-04-02 17:40] LABS: Add Urine Microscopic? YES; Bilirubin Urine 1+ (Negative); Blood Urine Neg (Negative); Glucose Urine UA Norm (Normal); Ketones Urine Negative (Negative); Leukocyte Esterase Urine Trace (Negative); Nitrate Urine Negative (Negative); Protein Urine 1+ (Negative); Specific Gravity, Urine 1.015 (1.005-1.030); Urine Appearance Clear (CLEAR); Urine Color Amber (Yellow); Urobilinogen Urine 4 mg/dL (Negative); pH Urine 5 (5-7)
[2022-04-02 17:41] LABS: Add Urine Culture? Yes; Bacteria Urine 3+ /hpf; Hyaline Casts Urine 0-4 /lpf; Mucus Urine 1+ /hpf; RBC Urine 0-4 /hpf (0-2); Squamous Epithelial Cell Urine 0-4 /hpf (0-5)
[2022-04-02] MEDS: ondansetron 2 mg/ML SDV 2 mL 4 MG IVP (17:51)
--- NOTE | 2022-04-02 17:59 | ECG_ITS ---
[facility] Test Date: 2022-04-02 Pat Name: Allen Francois Department: Room: Gender: Male Real Estate Administrative Assistant: : 1965 Requested By: James Camejo Order Number: [id number] Childers MD: Kelvin Johnson M.D. Measurements Intervals [place] Rate: 125 P: 40 [place]: 136 QRS: 63 QRSD: 81 T: -8 QT: 336 QTc: 485 Interpretive Statements SINUS TACHYCARDIA SEPTAL MYOCARDIAL INFARCTION , PROBABLY OLD [40+ ms Q WAVE IN V1/V2] Compared to ECG 04/02/2022 13:51:57 No significant changes Electronically Signed On 04-03-2022 8:15:24 EXERCISE PHYSIOLOGY PROFESSOR by Kelvin Johnson M.D. [id number]
== END 2022-04-02 18:52 | disposition short-term general hospital (02) ==
PROVIDERS: Emergency Provider Emergency Medicine; PCP Nurse Practitioner
DX: I31.39 Other pericardial effusion (noninflammatory) (principal); Z95.2 Presence of prosthetic heart valve; Z79.82 Long term (current) use of aspirin; Z79.01 Long term (current) use of anticoagulants; I10 Essential (primary) hypertension; E78.2 Mixed hyperlipidemia; G35 Multiple sclerosis
CPT/HCPCS: 36415; 71045; 71260; 80053; 81001; 83605; 83735; 83880; 84484; 85025; 85610; 87040; 87086; 93005; 96374; 99285; J2405; J7040; Q9967

== ENCOUNTER → 2022-04-12 11:03 | Outpatient (BNVA) | payer OTHER, SELFPAY | PROVIDERS: PCP Nurse Practitioner; Visit Provider Nurse Practitioner Family | DX: I35.0 Nonrheumatic aortic (valve) stenosis (principal) | CPT/HCPCS: 71046; 80053; 83735; 85018; 85025; 85610 ==

== ENCOUNTER → 2022-04-16 10:15 | Outpatient (BNVA) | payer OTHER, SELFPAY | PROVIDERS: PCP Nurse Practitioner; Visit Provider Nurse Practitioner | DX: Z79.01 Long term (current) use of anticoagulants (principal) | CPT/HCPCS: 85610 ==

== ENCOUNTER 2022-04-17 04:16 | Emergency (ER) | payer OTHER, SELFPAY ==
--- NOTE | 2022-04-17 04:20 | ECG_ITS ---
[facility] Test Date: 2022-04-17 Pat Name: Allen Francois Department: Room: Gender: Male Environmental Technology Professor: : 1965 Requested By: Rishi Teresa Order Number: [id number] Liseth MD: Kelvin Johnson M.D. Measurements Intervals [place] Rate: 101 P: 38 OR: 167 QRS: 6 QRSD: 85 T: -51 QT: 326 QTc: 424 Interpretive Statements SINUS TACHYCARDIA POSSIBLE LEFT ATRIAL ENLARGEMENT [-0.1mV P-WAVE IN V1/V2] MODERATE T-WAVE ABNORMALITY, CONSIDER INFERIOR ISCHEMIA [-0.1+ mV T-WAVE IN II/aVF] Compared to ECG 04/02/2022 18:10:18 T-wave abnormality now present Possible ischemia now present Myocardial infarct finding no longer present Electronically Signed On 04-17-2022 9:26:33 PARK MANAGER by Kelvin Johnson M.D. [id number]
--- NOTE | 2022-04-17 04:20 | CTR_ITS ---
PROCEDURE INFORMATION: Exam: CTA Chest With Contrast Exam date and time: 04/17/2022 5:31 AM Age: 57 years old Clinical indication: Shortness of breath; Right-sided; Prior surgery; Surgery date: 1-6 months; Surgery type: Cabg/aortic valve six weeks ago; Patient HX: RT sided chest pain with SOB. Open heart surgery for cabg and aortic valve 6 weeks ago. Had pericardial aspiration one week ago. ; Additional info: Cp TECHNIQUE: Imaging protocol: Computed tomographic angiography of the chest with contrast. 3D rendering (Not supervised by radiologist): MIP and/or 3D reconstructed images were created by the technologist. Total images: 1008 Radiation optimization: All CT scans at this facility use at least one of these dose optimization techniques: automated exposure control; mA and/or kV adjustment per patient size (includes targeted exams where dose is matched to clinical indication); or iterative reconstruction. Contrast material: OMNI 350; Contrast volume: 61 ml; Contrast route: INTRAVENOUS (IV); Other protocol: This patient has received [address] and 0 known cardiac nuclear medicine studies in the 12 months prior to the current study. COMPARISON: CT chest w con* [id number] 04/02/2022 1:25 PM RADIATION DOSE METRICS: Total DLP (mGy-cm): 450.21 FINDINGS: Pulmonary arteries: Normal. No pulmonary emboli. Aorta: Unremarkable. No aortic aneurysm. No aortic dissection. Lungs: Area of lung consolidation with air bronchograms noted posterior inferior left upper lobe felt to represent an area of atelectasis and appears similar to the prior exam. Streaky right basilar opacity favors atelectasis. Pleural spaces: There is a small left pleural effusion. Heart: There has been an aortic valve replacement. Significant improvement in pericardial effusion. Small amount of mildly increased density fluid anterior inferior blending with pericardium felt to represent small amount of mediastinal hemorrhage or residual pericardial effusion. Lymph nodes: Unremarkable. No enlarged lymph nodes. Bones/joints: Changes of sternotomy are noted. Adjacent edema, small amounts of fluid, and subcutaneous emphysema suggesting recent surgery. Soft tissues: See Bones/joints finding. CT/CT angio chest PE protcl [id number] IMPRESSION: 1. Changes of sternotomy are noted. Adjacent edema, small amounts of fluid, and subcutaneous emphysema suggesting recent surgery. 2. Significant improvement in pericardial effusion. Small amount of mildly increased density fluid anterior inferior blending with pericardium felt to represent small amount of mediastinal hemorrhage or residual pericardial effusion. 3. Area of lung consolidation with air bronchograms noted posterior inferior left upper lobe felt to represent an area of atelectasis and appears similar to the prior exam. 4. There is a small left pleural effusion. This finding is stable when compared to the prior exam. 5. Streaky right basilar opacity favors atelectasis. COMMENTS: In the absence of a history or active diagnosis of lung cancer, it is recommended that this patient with emphysema be evaluated for enrollment in a low dose CT lung cancer screening program.
--- NOTE | 2022-04-17 04:20 | XRR_ITS ---
PROCEDURE INFORMATION: Exam: XR Chest Exam date and time: 04/17/2022 5:22 AM Age: 57 years old Clinical indication: Shortness of breath; Right-sided; Prior surgery; Surgery date: 1-6 months; Surgery type: Cabg/aortic valve six weeks ago; Patient HX: RT sided chest pain with SOB. Open heart surgery for cabg and aortic valve 6 weeks ago. Had pericardial aspiration one week ago. ; Additional info: Cp TECHNIQUE: Imaging protocol: Radiologic exam of the chest. Views: 1 view. Total images: 1 COMPARISON: CR XR chest 2V* [id number] 04/12/2022 12:03 PM FINDINGS: Lungs: Stable left pleuroparenchymal disease. Pleural spaces: No pneumothorax. Heart/Mediastinum: Heart is enlarged but stable when compared to the prior exam. Bones/joints: Osseous structures are unchanged from the prior exam. Other findings: Stable postsurgical changes. XR/XR chest 1V portable [id number] IMPRESSION: 1. Stable left pleuroparenchymal disease. 2. Heart is enlarged but stable when compared to the prior exam.
[2022-04-17 04:21] VITALS: BP 143/90; PULSE 104; RESP 20; TEMP 37.1; O2SAT 95; BMI 28.7
--- NOTE | 2022-04-17 04:23 | ED_ITS ---
Documented by User: Rishi Teresa MD 04/17/22 05:33 HPI - SOB/Dyspnea General: Chief Complaint: Chest Pain Stated Complaint: SOB Time Seen by Provider: 04/17/22 04:20 Source: patient and EMS Mode of arrival: EMS Limitations: no limitations History of Present Illness: HPI Narrative: 57-year-old male with a history of aortic valve repair along with bypass 6 weeks ago he was seen here 2 weeks ago and did have a pericardial effusion was transferred back to [facility] and he had a drain states that over the last 4 to 5 days has had a slight cough along with a sharp chest pain and some shortness of breath he states that sharp pain and dyspnea is gotten worse tonight he is in no distress here pulse ox 96% on room air denies any worsening proving factors. Associated symptoms: Reports chest pain; Deny abdominal pain, fever(s), nausea or vomiting Review of Systems Const: Denies: fever(s), chills, body aches or change in appetite Eyes: Denies: blurry vision or eye discomfort ENMT: Denies: throat pain or dental pain Card: Reports: chest pain Resp: Reports: dyspnea and non-productive cough GI: Denies: abdominal pain, nausea, vomiting or diarrhea : Denies: dysuria Musc: Denies: neck pain or back pain Skin/Breast: Denies: rash Neuro: Denies: headache(s) Psych: Denies: depression Kody/Lymph: Denies: easy bruising All/Imm: Denies: urticaria PFSH ED PFSH: Medical History Abnormal Q waves on electrocardiogram Acute bacterial sinusitis Aortic root dilation The aortic root was measured to be 4.3 cm in diameter, just above the level of the stenosis. Chest pain Chronic radicular pain of lower back Cough Encounter for long-term opiate analgesic use Hypertension Patient was seen in the [facility] in January 2019 for HTN and given Amlodipine 10mg RX to take daily and to followup at [facility]. Patient did not followup at the clinic and did not continue medications following ER discharge. Lower respiratory infection Lower respiratory infection Medication management Mild acid reflux Mixed hyperlipidemia Multiple sclerosis Opioid contract exists Restless leg syndrome Shortness of breath Trigeminal nerve disease Vitamin D deficiency Surgical History Hx of appendectomy Hx of prior ablation treatment due to trigeminal neuralgia- Severo Carcamo Neurologist Family History Brother Cancer Multiple sclerosis Social History Smoking and tobacco status: never smoked Second hand smoke exposure: No Smoking risk assessment/counseling performed?: No Alcohol intake: never Desire information about alcohol rehabilitation?: No Counseling given: No Desire information about substance/drug rehabilitation?: No Counseling given: No Physical Exam Const: COMMON NORMALS: no acute distress, patient oriented x3 and healthy appearing HENMT: COMMON NORMALS: normocephalic and atraumatic HEAD & SCALP: normocephalic and atraumatic Eye: COMMON NORMALS: Equal, round and reactive pupils present and EOMs intact bilaterally PUPIL: Yes Equal, round and reactive pupils present Neck/C-Spine: COMMON NORMALS: full ROM and supple Chest: COMMONS NORMALS: normal inspection of the chest and normal palpation of entire chest wall Resp: COMMON NORMALS: normal respiratory effort, No retractions, No use of accessory muscles and clear to auscultation bilaterally AUSCULTATION: clear to auscultation bilaterally Cardio: COMMON NORMALS: regular rate, regular rhythm and No murmurs present (Cardio) RATE: regular rate RHYTHM: regular rhythm GI: COMMON NORMALS: Normal to inspection, nondistended, normoactive bowel sounds present, Soft to palpation, non-tender and no masses PALPATION: Yes Soft to palpation Extremity: COMMON NORMALS: normal to inspection and full ROM Neuro: COMMON NORMALS: patient oriented x3, moves all extremities and no focal motor deficits Psych: COMMON NORMALS: mental status grossly normal, Normal thought process present and cooperative THOUGHT PROCESS: Normal thought process present Skin: COMMON NORMALS: no rashes or lesions noted and no wounds GENERAL SKIN EXAM: no rashes or lesions noted Course Vital Signs: Vital signs: Vital Signs Temperature 98.7 F 04/17/22 04:21 Pulse Rate 96 04/17/22 06:26 Respiratory Rate 20 H 04/17/22 06:26 Blood Pressure 115/71 04/17/22 06:26 Pulse Oximetry 94 04/17/22 06:26 Oxygen Delivery Me thod 04/17/22 04:21 MDM - SOB/Dyspnea Medical Decision Making WithPatient presents here with a sharp chest pain he did have recent preop erative clearance he also had a pericardial effusion that had to be drained roughly 2 weeks ago patient's first troponin here is normal blood work is normal patient is pending a CT scan of his chest along with 2-hour troponin patient's care turned over to Dr. Flowers. Lab Data 04/17/22 04:15 04/17/22 04:15 Labs/Radiology: Radiology Impressions Chest CTA 04/17/22 04:20 IMPRESSION: 1. Changes of sternotomy are noted. Adjacent edema, small amounts of fluid, and subcutaneous emphysema suggesting recent surgery. 2. Significant improvement in pericardial effusion. Small amount of mildly increased density fluid anterior inferior blending with pericardium felt to represent small amount of mediastinal hemorrhage or residual pericardial effusion. 3. Area of lung consolidation with air bronchograms noted posterior inferior left upper lobe felt to represent an area of atelectasis and appears similar to the prior exam. 4. There is a small left pleural effusion. This finding is stable when compared to the prior exam. 5. Streaky right basilar opacity favors atelectasis. COMMENTS: In the absence of a history or active diagnosis of lung cancer, it is recommended that this patient with emphysema be evaluated for enrollment in a low dose CT lung cancer screening program. Chest X-Ray 04/17/22 04:20 IMPRESSION: 1. Stable left pleuroparenchymal disease. 2. Heart is enlarged but stable when compared to the prior exam. Laboratory Results WBC 17.8 10^3/uL (4.0-10.0) H 04/17/22 04:15 RBC 4.33 10^6/uL (4.1-5.3) 04/17/22 04:15 Hgb 11.4 g/dL (11.7-16.6) L 04/17/22 04:15 Hct 37.2 % (42.0-52.0) L 04/17/22 04:15 MCV 85.9 fl (80-94) 04/17/22 04:15 MCH 26.3 pg (28.0-34.0) L 04/17/22 04:15 MCHC 30.6 g/dL (30.0-36.0) 04/17/22 04:15 RDW 14.7 % (12.1-15.1) 04/17/22 04:15 Plt Count 423 10^3/cmm (130-400) H 04/17/22 04:15 MPV 9.3 fL (7.4-10.4) 04/17/22 04:15 Neut % (Auto) 72.4 % 04/17/22 04:15 Lymph % (Auto) 16.1 % 04/17/22 04:15 [place] % (Auto) 8.6 % 04/17/22 04:15 Eos % (Auto) 2.0 % 04/17/22 04:15 Baso % (Auto) 0.6 % 04/17/22 04:15 Neut # (Auto) 12.90 10^3/uL (1.8-7.7) H 04/17/22 04:15 Lymph # (Auto) 2.9 10^3/uL (0.8-4.8) 04/17/22 04:15 [place] # (Auto) 1.5 10^3/uL (0.2-0.9) H 04/17/22 04:15 Eos # (Auto) 0.4 10^3/uL (0.0-0.8) 04/17/22 04:15 Baso # (Auto) 0.1 10^3/uL (0.0-0.1) 04/17/22 04:15 Nucleated RBC % (auto) 0 % 04/17/22 04:15 Nucleated RBCs # 0.0 /100WBC 04/17/22 04:15 PT 16.00 SECONDS (12.1-14.9) H 04/17/22 04:15 INR 1.25 (0.8-1.2) H 04/17/22 04:15 Sodium 134 mmol/L (136-145) L 04/17/22 04:15 Potassium 4.1 mmol/L (3.5-5.1) 04/17/22 04:15 Chloride 99 mmol/L (98-107) 04/17/22 04:15 Carbon Dioxide 24 mmol/L (22-29) 04/17/22 04:15 Anion Gap 15.1 (5-19) 04/17/22 04:15 BUN 13 mg/dL (6-20) 04/17/22 04:15 Creatinine 0.8 mg/dL (0.7-1.2) 04/17/22 04:15 GFR Calculation 98.9 mL/min (90-130) 04/17/22 04:15 Glucose 162 mg/dL (65-115) H 04/17/22 04:15 Calculated Osmolality 282 mOsm/kg (285-295) L 04/17/22 04:15 Calcium 9.2 mg/dL (8.5-10.5) 04/17/22 04:15 Total Bilirubin 0.5 mg/dL (0.15-1.2) 04/17/22 04:15 AST 48 U/L (0-40) H 04/17/22 04:15 ALT 64 U/L (0-41) H 04/17/22 04:15 Alkaline Phosphatase 185 U/L (40-130) H 04/17/22 04:15 Troponin T Baseline 8 ng/L (0-15) 04/17/22 04:15 Troponin T 120 Minute 7.77 ng/L (0-15) 04/17/22 06:10 Delta Troponin T -0.23 ABS# (0-10) L 04/17/22 06:10 NT-Pro-B Natriuret Pep 785 pg/mL (0-125) H 04/17/22 04:15 Total Protein 6.9 g/dL (6.6-8.7) 04/17/22 04:15 Albumin 2.7 g/dL (3.5-5.2) L 04/17/22 04:15 Globulin 4.2 g/dL (1.3-4.6) 04/17/22 04:15 EKG Data EKG 1: I personally reviewed and interpreted this EKG as follows: EKG Interpretation Date: 04/17/22 EKG interpretation time: 04:21 Interpretation: sinus tach hr [address] or t wave abnormalities qrs 85 qtc 384 Discharge Plan Discharge Patient Disposition: Home Clinical Impression: Status post thoracotomy, Multiple sclerosis, Chest wall pain Condition: Stable Prescriptions: No Action metoprolol tartrate 25 mg tablet 12.5 mg PO BID aspirin 325 mg Tablet 325 mg PO DAILY warfarin 5 mg Tablet 5 mg PO DAILY ropinirole 2 mg tablet 2 mg PO BID Discharge Orders: Discharge ED (Routine); Ordered 04/17/22 Ordered By: Aakash Flowers Referrals: Fartun Rockwell FNP [Primary Care Provider] - Discharge Diet: Usual diet Discharge Activity: Limit activity as instructed Patient Instructions: Opioid Safety, Pain Management Activity Restrictions/Additional Instructions: Chest x-ray laboratory work EKGs and CT of your chest were all normal findings given your current condition and recent surgery. You do have some atelectasis in the lungs recommend that you resume using your incentive spirometer. Your INR was low for your condition today at 1.25 I recommend that you contact your manager art or cardiothoracic surgeon for further instructions regarding changes on your warfarin. Keep your next scheduled follow-up with cardiology as previously scheduled. Also recommend you discuss with them resuming a lower dose statin and potentially resuming your duloxetine. Sign Out Sign Out Data: Patient Sign Out occurred on 04/17/22 at 06:03. Patient's care was discussed, and care was transferred from to Aakash Flowers DO. Coding Level of Care Code ED Rheostat Assembler for Chg Fwd Exam Comprehensive Documented by User: Aakash Flowers DO 04/17/22 07:56 HPI - SOB/Dyspnea General: Chief Complaint: Chest Pain Stated Complaint: SOB Time Seen by Provider: 04/17/22 04:20 PFS ED PFSH: Medical History Abnormal Q waves on electrocardiogram Acute bacterial sinusitis Aortic root dilation The aortic root was measured to be 4.3 cm in diameter, just above the level of the stenosis. Chest pain Chronic radicular pain of lower back Cough Encounter for long-term opiate analgesic use Hypertension Patient was seen in the [facility] ER in January 2019 for HTN and given Amlodipine 10mg RX to take daily and to followup at [facility]. Patient did not followup at the clinic and did not continue medications following ER discharge. Lower respiratory infection Lower respiratory infection Medication management Mild acid reflux Mixed hyperlipidemia Multiple sclerosis Opioid contract exists Restless leg syndrome Shortness of breath Trigeminal nerve disease Vitamin D deficiency Surgical History Hx of appendectomy Hx of prior ablation treatment due to trigeminal neuralgia- Severo Carcamo Neurologist Family History Brother Cancer Multiple sclerosis Social History Smoking and tobacco status: never smoked Second hand smoke exposure: No Smoking risk assessment/counseling performed?: No Alcohol intake: never Desire information about alcohol rehabilitation?: No Counseling given: No Desire information about substance/drug rehabilitation?: No Counseling given: No Course Vital Signs: Vital signs: Vital Signs Temperature 98.7 F 04/17/22 04:21 Pulse Rate 96 04/17/22 06:26 Respiratory Rate 20 H 04/17/22 06:26 Blood Pressure 115/71 04/17/22 06:26 Pulse Oximetry 94 04/17/22 06:26 Oxygen Delivery Me thod 04/17/22 04:21 MDM - SOB/Dyspnea Medical Decision Making WithPatient presents here with a sharp chest pain he did have recent preoperative clearance he also had a pericardial effusion that had to be drained roughly 2 weeks ago patient's first troponin here is normal blood work is normal patient is pending a CT scan of his chest along with 2-hour troponin patient's care turned over to Dr. Flowers. Patient care handoff received from Dr. Teresa continuation of ED evaluation. I personally saw and evaluated patient and reperformed amador portions of E/M. Repeat examination done is unremarkable. Long discussion with the patient. Should he continue to follow-up with cardiology particularly regarding his INR which is subtherapeutic at this time. Additionally recommend he review with him his inability to tolerate the full dose statin he may benefit from a lower dose. Finally I think he may benefit from resuming the duloxetine that was stopped prior to surgery. He does have some anxiety issues and what he describes morning sounds as if he may have had a anxiety attack and was hyperventilating. His concurred and her description of the episode this morning and was concerned about it. Resuming duloxetine may be beneficial not only for his discomfort in his legs but also with his anxiety. He was also encouraged to resume his incentive spirometer for the atelectasis seen on the imaging today. Medical Records I reviewed the patient's medical records. Lab Data I reviewed the patient's lab results. 04/17/22 04:15 04/17/22 04:15 Labs/Radiology: Radiology Impressions Chest CTA 04/17/22 04:20 IMPRESSION: 1. Changes of sternotomy are noted. Adjacent edema, small amounts of fluid, and subcutaneous emphysema suggesting recent surgery. 2. Significant improvement in pericardial effusion. Small amount of mildly increased density fluid anterior inferior blending with pericardium felt to represent small amount of mediastinal hemorrhage or residual pericardial effusion. 3. Area of lung consolidation with air bronchograms noted posterior inferior left upper lobe felt to represent an area of atelectasis and appears similar to the prior exam. 4. There is a small left pleural effusion. This finding is stable when compared to the prior exam. 5. Streaky right basilar opacity favors atelectasis. COMMENTS: In the absence of a history or active diagnosis of lung cancer, it is recommended that this patient with emphysema be evaluated for enrollment in a low dose CT lung cancer screening program. Chest X-Ray 04/17/22 04:20 IMPRESSION: 1. Stable left pleuroparenchymal disease. 2. Heart is enlarged but stable when compared to the prior exam. Laboratory Results WBC 17.8 10^3/uL (4.0-10.0) H 04/17/22 04:15 RBC 4.33 10^6/uL (4.1-5.3) 04/17/22 04:15 Hgb 11.4 g/dL (11.7-16.6) L 04/17/22 04:15 Hct 37.2 % (42.0-52.0) L 04/17/22 04:15 MCV 85.9 fl (80-94) 04/17/22 04:15 MCH 26.3 pg (28.0-34.0) L 04/17/22 04:15 MCHC 30.6 g/dL (30.0-36.0) 04/17/22 04:15 RDW 14.7 % (12.1-15.1) 04/17/22 04:15 Plt Count 423 10^3/cmm (130-400) H 04/17/22 04:15 MPV 9.3 fL (7.4-10.4) 04/17/22 04:15 Neut % (Auto) 72.4 % 04/17/22 04:15 Lymph % (Auto) 16.1 % 04/17/22 04:15 [place] % (Auto) 8.6 % 04/17/22 04:15 Eos % (Auto) 2.0 % 04/17/22 04:15 Baso % (Auto) 0.6 % 04/17/22 04:15 Neut # (Auto) 12.90 10^3/uL (1.8-7.7) H 04/17/22 04:15 Lymph # (Auto) 2.9 10^3/uL (0.8-4.8) 04/17/22 04:15 [place] # (Auto) 1.5 10^3/uL (0.2-0.9) H 04/17/22 04:15 Eos # (Auto) 0.4 10^3/uL (0.0-0.8) 04/17/22 04:15 Baso # (Auto) 0.1 10^3/uL (0.0-0.1) 04/17/22 04:15 Nucleated RBC % (auto) 0 % 04/17/22 04:15 Nucleated RBCs # 0.0 /100WBC 04/17/22 04:15 PT 16.00 SECONDS (12.1-14.9) H 04/17/22 04:15 INR 1.25 (0.8-1.2) H 04/17/22 04:15 Sodium 134 mmol/L (136-145) L 04/17/22 04:15 Potassium 4.1 mmol/L (3.5-5.1) 04/17/22 04:15 Chloride 99 mmol/L (98-107) 04/17/22 04:15 Carbon Dioxide 24 mmol/L (22-29) 04/17/22 04:15 Anion Gap 15.1 (5-19) 04/17/22 04:15 BUN 13 mg/dL (6-20) 04/17/22 04:15 Creatinine 0.8 mg/dL (0.7-1.2) 04/17/22 04:15 GFR Calculation 98.9 mL/min (90-130) 04/17/22 04:15 Glucose 162 mg/dL (65-115) H 04/17/22 04:15 Calculated Osmolality 282 mOsm/kg (285-295) L 04/17/22 04:15 Calcium 9.2 mg/dL (8.5-10.5) 04/17/22 04:15 Total Bilirubin 0.5 mg/dL (0.15-1.2) 04/17/22 04:15 AST 48 U/L (0-40) H 04/17/22 04:15 ALT 64 U/L (0-41) H 04/17/22 04:15 Alkaline Phosphatase 185 U/L (40-130) H 04/17/22 04:15 Troponin T Baseline 8 ng/L (0-15) 04/17/22 04:15 Troponin T 120 Minute 7.77 ng/L (0-15) 04/17/22 06:10 Delta Troponin T -0.23 ABS# (0-10) L 04/17/22 06:10 NT-Pro-B Natriuret Pep 785 pg/mL (0-125) H 04/17/22 04:15 Total Protein 6.9 g/dL (6.6-8.7) 04/17/22 04:15 Albumin 2.7 g/dL (3.5-5.2) L 04/17/22 04:15 Globulin 4.2 g/dL (1.3-4.6) 04/17/22 04:15 Discharge Plan Discharge Patient Disposition: Home Clinical Impression: Status post thoracotomy, Multiple sclerosis, Chest wall pain Condition: Stable Prescriptions: No Action metoprolol tartrate 25 mg tablet 12.5 mg PO BID aspirin 325 mg Tablet 325 mg PO DAILY warfarin 5 mg Tablet 5 mg PO DAILY ropinirole 2 mg tablet 2 mg PO BID Discharge Orders: Discharge ED (Routine); Ordered 04/17/22 Ordered By: Aakash Flowers Referrals: Fartun Rockwell FNP [Primary Care Provider] - Discharge Diet: Usual diet Discharge Activity: Limit activity as instructed Patient Instructions: Opioid Safety, Pain Management Activity Restrictions/Additional Instructions: Chest x-ray laboratory work EKGs and CT of your chest were all normal findings given your current condition and recent surgery. You do have some atelectasis in the lungs recommend that you resume using your incentive spirometer. Your INR was low for your condition today at 1.25 I recommend that you contact your manager art or cardiothoracic surgeon for further instructions regarding changes on your warfarin. Keep your next scheduled follow-up with cardiology as previously scheduled. Also recommend you discuss with them resuming a lower dos e statin and potentially resuming your duloxetine. Sign Out Sign Out Data: Patient Sign Out occurred on 04/17/22 at 06:03. Patient's care was discussed, and care was transferred from to Aakash Flowers DO. Coding Level of Care Code ED Rheostat Assembler for chastity Fwd Exam Comprehensive
[2022-04-17 04:27] LABS: Basophils # 0.1 10^3/uL (0.0-0.1); Basophils % 0.6 %; Eosinophils # 0.4 10^3/uL (0.0-0.8); Hematocrit 37.2 % (42.0-52.0); Hemoglobin 11.4 g/dL (11.7-16.6); Lymphocytes # 2.9 10^3/uL (0.8-4.8); Lymphocytes % 16.1 %; Mean Corpuscular HGB Conc 30.6 g/dL (30.0-36.0); Mean Corpuscular Hemoglobin 26.3 pg (28.0-34.0); Mean Corpuscular Volume 85.9 fl (80-94); Mean Platelet Volume 9.3 fL (7.4-10.4); Monocytes # 1.5 10^3/uL (0.2-0.9); Monocytes % 8.6 %; Neutrophils % 72.4 %; Nucleated Red Blood Cells % 0 %; Platelet Count 423 10^3/cmm (130-400); Red Blood Count 4.33 10^6/uL (4.1-5.3); Red Cell Distribution Width 14.7 % (12.1-15.1); White Blood Count 17.8 10^3/uL (4.0-10.0)
[2022-04-17 04:41] LABS: INR 1.25 (0.8-1.2)
[2022-04-17 04:52] LABS: Alanine Aminotransferase 64 U/L (0-41); Albumin Level 2.7 g/dL (3.5-5.2); Alkaline Phosphatase 185 U/L (40-130); Anion Gap 15.1 (5-19); Aspartate Amino Transferase 48 U/L (0-40); Blood Urea Nitrogen 13 mg/dL (6-20); Calcium 9.2 mg/dL (8.5-10.5); Carbon Dioxide 24 mmol/L (22-29); Chloride 99 mmol/L (98-107); Globulin 4.2 g/dL (1.3-4.6); Glomerular Filtration Rate 98.9 mL/min (90-130); Glucose 162 mg/dL (65-115); Osmolality Calculated 282 mOsm/kg (285-295); Potassium 4.1 mmol/L (3.5-5.1); Sodium 134 mmol/L (136-145); Total Bilirubin 0.5 mg/dL (0.15-1.2); Total Protein 6.9 g/dL (6.6-8.7)
[2022-04-17 04:53] LABS: Troponin(5th) Baseline 8 ng/L (0-15)
[2022-04-17 05:27] VITALS: BP 124/80; PULSE 100; RESP 21; O2SAT 95
[2022-04-17] MEDS: iohexol 350 mg/mL 500 mL Btl (per mL) IV (05:42)
[2022-04-17 06:00] LABS: NT Pro B Type Natriuretic Pept 785 pg/mL (0-125)
--- NOTE | 2022-04-17 06:20 | ECG_ITS ---
[facility] Test Date: 2022-04-17 Pat Name: Allen Francois Department: Room: Gender: Male [employer]: : 1965 Requested By: Rishi Teresa Order Number: [id number] Liseth MD: Kelvin Johnson M.D. Measurements Intervals [place] Rate: 95 P: 66 [place]: 179 QRS: 7 QRSD: 84 T: -41 QT: 341 QTc: 429 Interpretive Statements SINUS RHYTHM Compared to ECG 04/02/2022 18:10:18 Sinus tachycardia no longer present Myocardial infarct finding no longer present Electronically Signed On 04-17-2022 9:28:02 CATH LAB NURSE by Kelvin Johnson M.D. [id number]
[2022-04-17 06:26] VITALS: BP 115/71; PULSE 96; RESP 20; O2SAT 94
[2022-04-17 06:33] LABS: Troponin 5 2HR 7.77 ng/L (0-15)
[2022-04-17 06:55] LABS: Troponin 5 2HR Delta -0.23 ABS# (0-10)
[2022-04-17 08:03] VITALS: BP 111/74; PULSE 98; RESP 18; O2SAT 93
== END 2022-04-17 08:05 | disposition home or self-care (01) ==
PROVIDERS: Emergency Medicine; Emergency Provider Family Medicine; PCP Nurse Practitioner
DX: R07.89 Other chest pain (principal); G35 Multiple sclerosis; Z98.890 Other specified postprocedural states; Z79.01 Long term (current) use of anticoagulants; Z79.82 Long term (current) use of aspirin; I10 Essential (primary) hypertension; E78.2 Mixed hyperlipidemia
CPT/HCPCS: 71045; 71275; 80053; 83880; 84484; 85025; 85610; 93005; 99285; Q9967

== ENCOUNTER → 2022-04-19 10:20 | Outpatient (BNVA) | payer OTHER, SELFPAY | PROVIDERS: PCP Nurse Practitioner; Visit Provider Nurse Practitioner | DX: Z79.01 Long term (current) use of anticoagulants (principal) | CPT/HCPCS: 85610 ==

== ENCOUNTER → 2022-04-25 10:51 | Outpatient (BNVA) | payer OTHER, SELFPAY | PROVIDERS: PCP Nurse Practitioner; Visit Provider Nurse Practitioner | DX: Z79.01 Long term (current) use of anticoagulants (principal) | CPT/HCPCS: 85610 ==

== ENCOUNTER → 2022-05-01 14:10 | Outpatient (BNVA) | payer OTHER, SELFPAY | PROVIDERS: PCP Nurse Practitioner; Visit Provider Nurse Practitioner | DX: I35.0 Nonrheumatic aortic (valve) stenosis (principal) | CPT/HCPCS: 85610 ==

== ENCOUNTER → 2022-05-03 09:07 | Outpatient (BNVA) | payer OTHER, SELFPAY | PROVIDERS: PCP Nurse Practitioner; Visit Provider Nurse Practitioner Family | DX: R00.0 Tachycardia, unspecified (principal) | CPT/HCPCS: 71046 ==

== ENCOUNTER → 2022-05-10 09:01 | Outpatient (BNVA) | payer OTHER, SELFPAY | PROVIDERS: PCP Nurse Practitioner; Visit Provider Nurse Practitioner | DX: Z79.01 Long term (current) use of anticoagulants (principal) | CPT/HCPCS: 85610 ==